=== PATIENT | male | born 1995 | race Two or more races ===

== ENCOUNTER 2016-12-08 01:03 | Emergency (ER) | payer BC ==
[~2016-12-08] VITALS: Ht 188 cm; Wt 81.6 kg
[2016-12-08 03:00] VITALS: BP 118/76
== END 2016-12-08 03:56 | disposition home or self-care (01) ==
LOC: ER 01:12
DX: F41.9 Anxiety disorder, unspecified (principal); J02.9 Acute pharyngitis, unspecified; F17.210 Nicotine dependence, cigarettes, uncomplicated; F12.10 Cannabis abuse, uncomplicated